=== PATIENT | female | born 1965 | race American Indian/Alaskan Native ===

== ENCOUNTER 2016-11-19 20:28 | Emergency (ER) | payer MEDICARE ==
[2016-11-19 20:34] VITALS: BP 151/73
== END 2016-11-20 00:02 | disposition left against medical advice (07) ==
LOC: ED 20:28
DX: T17.208A Unspecified foreign body in pharynx causing other injury, initial encounter (principal); Z53.21 Procedure and treatment not carried out due to patient leaving prior to being seen by health care provider